=== PATIENT | female | born 1960 | race Caucasian/White ===

== ENCOUNTER 2024-09-10 00:37 | Emergency (ER) | payer OTHER ==
[2024-09-10] MEDS: Labetalol 20 MG/4 ML Syringe IVPUSH ONE (00:47)
[2024-09-10] MEDS: Labetalol 20 MG/4 ML Syringe ONE (00:47)
[2024-09-10] MEDS: LORazepam 2 MG/ML SDV IVPUSH ONE (00:49)
[2024-09-10] MEDS: LORazepam 2 MG/ML SDV ONE (00:49)
[2024-09-10] MEDS: fentaNYL 100 MCG/2 ML SDV IVPUSH ONE (00:50)
[2024-09-10 00:56] LABS: BLOOD UREA NITROGEN,BUN 18 mg/dL (7-18); BUN/CREATININE RATIO 16.4 (9-20); CALCIUM 8.8 mg/dL (8.6-10.2); CARBON DIOXIDE,CO2 20 mmol/L (21-32); CHLORIDE,CL 101 mmol/L (100-110); CREATININE 1.1 mg/dL (0.55-1.02); ESTIMATED GFR 56 mL/min (>60); GLUCOSE RANDOM 262 mg/dL (80-116); POTASSIUM,K 3.5 mmol/L (3.5-5.3); SODIUM,NA 137 mmol/L (135-145)
[2024-09-10 00:57] LABS: HEMATOCRIT 43.4 % (34.2-48.2); HEMOGLOBIN 14.6 g/dL (11.4-15.5); MEAN CORPUSCULAR HGB CONC 33.6 g/dL (31.9-34.8); MEAN CORPUSCULAR VOLUME 83.2 fL (76.7-100.5); MEAN PLATELET VOLUME 9.6 fL (7.1-12.4); PLATELET COUNT,PLT 273 x10(3)uL (151-488); RED BLOOD CELL COUNT 5.22 x10(6)uL (3.60-5.20); RED CELL DISTRIBUTION WIDTH 14.5 % (12.3-16.5); WHITE BLOOD CELL COUNT,WBC 19.4 x10-3/uL (3.0-10.3)
[2024-09-10 01:01] LABS: ALANINE AMINOTRANSFERASE,ALT 45 U/L (12-36); ALKALINE PHOSPHATASE 91 IU/L (56-112); ASPARTATE AMNIOTRANSFERASE,AST 39 IU/L (5-25); BILIRUBIN TOTAL 0.5 mg/dL (0.1-1.3); PROTEIN TOTAL,TP 7.9 g/dL (6.0-8.0)
[2024-09-10 01:06] LABS: TROPONIN I 183.1 pg/mL (4.0-60.3)
[2024-09-10 01:07] LABS: ETHANOL BLOOD MEDICAL < 0.03 % (<0.03)
[2024-09-10 01:10] LABS: LYMPHOCYTES PERCENT MAN 20 % (13-37); SEG NEUTROPHILS PERCENT MAN 73 % (46-82)
[2024-09-10 01:11] LABS: BASOPHILS PERCENT MAN 1 % (0-2); MONOCYTES PERCENT MAN 6 % (4-12)
[2024-09-10 01:26] LABS: BILIRUBIN,URINE NEGATIVE (NEGATIVE); GLUCOSE,URINE >1000 mg/dL (NORMAL); KETONES,URINE NEGATIVE (NEGATIVE); LEUKOCYTE ESTERASE,URINE NEGATIVE (NEGATIVE); NITRITE,URINE NEGATIVE (NEGATIVE); OCCULT BLOOD,URINE MODERATE (NEGATIVE); PROTEIN,URINE 100 mg/dL (NEGATIVE); UROBILINOGEN,URINE NORMAL (NEGATIVE)
[2024-09-10 01:27] LABS: APPEARANCE,URINE CLEAR (CLEAR); COLOR,URINE YELLOW (YELLOW)
[2024-09-10 01:32] LABS: BACTERIA,URINE FEW (NS); FINE GRANULAR CASTS,URINE FEW (NS); SQUAMOUS EPITHELIAL CELLS,UR FEW (NS,R,O); WBC,URINE 0-5 (0-5)
== END 2024-09-10 01:33 ==
LOC: EDBD → FB.ED 00:37
DX: I46.9 Cardiac arrest, cause unspecified (principal); Z79.899 Other long term (current) drug therapy
CPT/HCPCS: 36415; 51702; 70450; 71045; 80053; 80307; 81001; 84484; 85025; 93005; 93010; 96374; 96375; 99285; 99285-25; J2060; J3010